=== PATIENT | female | born 1945 | race Caucasian/White ===

== ENCOUNTER → 2020-01-18 14:19 | Outpatient (CLI) | payer OTHER, SELFPAY ==
[2020-01-19 13:16] LABS: COVID19 Sendout Not Detected (Not Detect)
== END ==
PROVIDERS: Visit Provider Nurse Practitioner
DX: Z01.812 Encounter for preprocedural laboratory examination (principal)
CPT/HCPCS: 87635

== ENCOUNTER 2020-01-21 07:50 | Inpatient (IN) | payer OTHER, SELFPAY ==
[2020-01-14 12:47] VITALS: BMI 29.7
[2020-01-21] VITALS (22 sets, daily range): BP systolic 112–161; BP diastolic 50–93; PULSE 80–91; RESP 10–18; TEMP 36.2–36.9; O2SAT 92–99; BMI 34.0
--- NOTE | 2020-01-21 | DI.RAD.S_ITS ---
PROCEDURE: XR CERVICAL SPINE 2V OR 3V INDICATIONS: C3-4, C4-5, C5-6 ACDF TECHNIQUE: Fluoroscopic images were obtained during an operative procedure and submitted for interpretation following the completion of the procedure. COMPARISON: [facility], MR, MR CERVICAL SPINE WITHOUT CONTRAST, 10/23/2019, 11:02. [facility], CR, XR CERVICAL SPINE 6+ VIEWS, 09/22/2019, 14:56. FINDINGS: These fluoroscopic images were performed for intraoperative localization. On these images, anterior fixation hardware is seen C3 through C6. Disc spacers have been placed at C3-C4, C4-C5, and C5-C6. Please correlate with intraoperative findings. IMPRESSION: Normal intraoperative examination. Dictated by: Abdi Valenzuela M.D. on 01/21/2020 at 11:03 Approved by: Abdi Valenzuela M.D. on 01/21/2020 at 11:04
[2020-01-21] MEDS: LACTATED RINGERS 1,000 ML 42 ML IV ×2 (08:25→10:33)
[2020-01-21] MEDS: ACETAMINOPHEN 325 MG TABLET 975 MG PO (08:31)
--- NOTE | 2020-01-21 08:39 | PM.PREOP ---
Pre-operative Note COVID-19 COVID-19 status: Negative Result date/Date tested (Pos, Neg/Pending): 01/19/20 Interval Note History & Physical reviewed/Exam performed by Physician: Yes Changes to H&P: No
[2020-01-21] MEDS: CLINDAMYCIN 900 MG/50 ML PIGGYBACK 50 MG IV ×2 (08:49→16:23)
--- NOTE | 2020-01-21 09:29 | SUR.OPER ---
Supine, head on gel donut. Arms padded with gel pads, tucked at sides, towel roll under shoulders. Safety belt at thigh. Legs uncrossed. pillow under knees, gel under heels
--- NOTE | 2020-01-21 10:02 | SUR.OPER ---
patient glasses sent to pacu with patient
--- NOTE | 2020-01-21 11:59 | P.OP_ITS ---
Operative Date/Time/Diagnoses Date of procedure: 01/21/20 Time of procedure: 08:59 Pre-op diagnosis: 1. C3-4, C4-5, C5-6 spondylolisthesis 2. C3-4, C4-5, C5-6 spinal stenosis Post-op diagnosis: same Procedure & Clinicians Procedure: 1. C3-4, C4-5, C5-6 anterior cervical diskectomy and fusion 2. C3-4, C4-5, C5-6 anterior interbody cage placement 3. C3-4, C4-5, C5-6 anterior instrumentation with plate and screw placement in C4-C5-C6 and C7 vertebrae 4. Utilization of microsurgical technique and operating microscope Same procedure as scheduled: Yes Indications: Patient has been having chronic neck pain and worsening cervical radiculopathy. Patient failed multiple conservative management with worsening pain weakness and numbness in her upper extremity. Patient has been having difficulty performing activity of daily living. After discussing risks benefits of treatment options, patient elected proceed with surgery. Surgeon: Kait Parham User Interface Artist: Lisa Puentes Click Yes if Unassisted: No Anesthesia Type: General Operative Notes Closure Type: primary Specimen(s): none sent Prosthetic devices, grafts, tissues, transplants, or devices: Globus extend plate, PEEK cages Applied: catheter Estimated Blood Loss (mL): 50 Blood products transfused: none Procedure in detail: Patient was seen in the preoperative area. Risks and benefits of the surgery was discussed with the patient. Operative consent was obtained and placed in the chart. Patient was then taken to the operative room. Prophylactic antibiotic was given less than 0.5 hr prior to skin incision. General anesthesia was administered. Patient was placed into a supine position on her radiolucent table. Bilateral shoulders were taped down to allow proper C- arm imaging. Anterior cervical area was prepped and draped in a sterile f ashion. Time-out was performed at this time. Using lateral C-arm imaging, the level between C3 and C6 was identified and marked on patient's neck. A oblique incision from midline towards medial border of sternocleidomastoid muscle was made. The platysma muscle was incised in line with skin incision. Metzenbaum scissor was used to develop the plane between the medial border of sternocleidomastoid d and the strap muscles medially. The carotid sheath and its contents were identified and protected behind the hand- held retractor during the entire case. The plane between the carotid sheath and strap muscles was developed with Metzenbaum scissors. Dissection was made down to the level of the anterior cervical fascia. Longus colli muscle was incised on the anterior aspect of vertebral bodies bilaterally from C3-C6. Spinal needle was placed into the C3-4 disc space and confirmed with lateral C-arm imaging. Using microsurgical technique and operative microscope, anterior cervical diskectomy was performed at C3-4 C4-5 and C5-6 level. This was done by removing the disc material, removing the anterior and posterior osteophytes posterior longitudinal ligaments along with performing bilateral foraminotomies at all 3 levels. Patient was found to have severe central and foraminal stenosis at all 3 levels. Patient's stenosis was fully decompressed after decompression was completed. After the diskectomy was completed, 3 anterior interbody cages were obtained. The cages were packed with DBM bone grafting material. One cage each along with the bone grafting material was then packed into the interbody spaces from C3-C6 with one cage into each interbody level. After the cages were placed, the anterior cervical plate was stabilized to the C3-C6 vertebrae using 2 screws at each each level. Total 8 screws were placed. After confirming placement of the hardware with AP and lateral C-arm imaging, the screws were locked into the plate using the locking mechanism and torque limiting screwdriver. After the hardware was placed and confirmed with AP and lateral C-arm imaging, the wound was irrigated with sterile normal saline. The platysma muscle and the subcutaneous tissue was closed with 2-0 Vicryl. The skin was closed with 4-0 Monocryl and Steri-Strips. Patient tolerated the procedure well. Patient was transferred recovery room in stable condition. There were no complications. Complications: none Post-operative Condition: stable Disposition: PACU Plan for aftercare: Admit to inpatient hospital
[2020-01-21] MEDS: ONDANSETRON 4 MG/2 ML INJ IV (12:11)
[2020-01-21] MEDS: ALBUTEROL 2.5 MG/3 ML NEB (ADULT) INH (12:11)
[2020-01-21] MEDS: hydrOXYzine 50 MG/ML INJ 25 MG IM (12:11)
[2020-01-21] MEDS: fentaNYL 100 MCG/2 ML INJ IV (12:24)
[2020-01-21] MEDS: HYDROMORPHONE 2 MG INJ IV ×2 (12:24→12:53)
--- NOTE | 2020-01-21 13:51 | SUR.PHASEI ---
Patient resting quietly with eyes closed. VSS. No respiratory distress noted. RR even and unlabored. Awaiting hand-off to receiving inpatient nurse.
--- NOTE | 2020-01-21 14:38 | PC.NURSE ---
Pt to room 222 via bed from PACU. Pt sleepy but awake when her name is called. Daughter is at the bedside. Pt denies pain at this time, Pt back asleep but discussed with daughter that bed alarm was on, call light use, no getting up without assistance, scd's are on and running, IVF running as ordered. Pt denies pain at this time. Pt is having occasional ice chips when awake but we are holding off any further po until Pt is awake.
[2020-01-21] MEDS: SODIUM CHLORIDE 0.9% 1,000 ML 100 ML IV (14:50)
--- NOTE | 2020-01-21 15:48 | PT-IP ANOTE ---
PT order received. Attempted to see pt at 1445. Pt was too drowsy to meaningfully participate in PT but pt's daughter was able to provide social hx. Will attempt again tomorrow morning.
[2020-01-21] MEDS: CITALOPRAM 10 MG TABLET 40 MG PO (16:23)
[2020-01-21] MEDS: PANTOPRAZOLE 40 MG TABLET PO (16:23)
[2020-01-21] MEDS: OXYCODONE IR 5 MG TABLET PO ×2 (16:56→19:59)
[2020-01-21] MEDS: hydrOXYzine pamoate 25 MG CAPSULE PO (18:52)
[2020-01-21] MEDS: POTASSIUM CHLORIDE 20 MEQ TAB PO (20:03)
[2020-01-21] MEDS: ACETAMINOPHEN 325 MG TABLET 650 MG PO (20:03)
[2020-01-21] MEDS: SIMVASTATIN 20 MG TABLET PO (20:03)
[2020-01-21] MEDS: DOCUSATE 100 MG CAPSULE PO (20:03)
[2020-01-21] MEDS: SENNOSIDES 8.6 MG TABLET 17.2 MG PO (20:04)
[2020-01-21] MEDS: HYDROMORPHONE 0.5 MG INJ 0.2 MG IV (21:12)
[2020-01-22] VITALS (7 sets, daily range): BP systolic 137–149; BP diastolic 73–92; PULSE 76–90; RESP 16–18; TEMP 36.2–37; O2SAT 93–100
[2020-01-22] MEDS: CLINDAMYCIN 900 MG/50 ML PIGGYBACK 50 MG IV (01:22)
[2020-01-22] MEDS: SODIUM CHLORIDE 0.9% 1,000 ML 100 ML IV (01:22)
[2020-01-22] MEDS: ONDANSETRON 4 MG/2 ML INJ IV ×2 (01:24→06:05)
[2020-01-22] MEDS: OXYCODONE IR 5 MG TABLET PO ×5 (01:24→18:38)
[2020-01-22] MEDS: hydrOXYzine pamoate 25 MG CAPSULE PO ×4 (03:56→18:38)
--- NOTE | 2020-01-22 07:26 | P.PN_ITS ---
Subjective Subjective Date Patient Seen: 01/22/20 Time Patient Seen: 07:26 Interval history: POD #1 s/p C3-[address] Parham. No difficulty swallowing this morning. She does complain of a constant headache since surgery. It does not change with position. She states she did not sleep at all last night due to the headache and vomiting. She has a quezada in place. Exam Vital Signs (past 8 hours): - 01/22/20 00:00 01/22/20 04:13 Temperature 97.2 F L 97.2 F L Pulse Rate 80 77 Respiratory Rate 16 18 Blood Pressure 146/92 H 149/88 H Pulse Oximetry 98 99 Oxygen Delivery Method Room Air Oxygen Flow Rate 2 Narrative Exam Narrative: Patient sitting up in bed in NAD. She is alert and oriented X3. SCDs on and functioning. Dining Service Inspector strength strong and equal. SILT throughout BUEs. D ressing on neck is CDI. Soft collar in place. Objective Labs Result Diagrams: 01/22/20 08:32 Assessment & Plan Post-op Postoperative Procedures: Procedures Operation Date: 01/21/20 08:45 Actual Procedures Side Surgeon p C3-4,C4-5,C5-6 ACDF w/ anterior instrumentation Kait Parham MD Patient will work with PT today. No excessive bending, lifting, or twisting. Will do 500 ml bolus due to vomiting all night. Will do decadron 10 mg now, and 4 mg every 6 hours for 24 hour burst. Continue current pain control. Keep quezada in place until she is mobilizing more. Anticipate discharge in next 2-3 days. Quality VTE Deep Vein Thrombosis/Pulmonary Embolism Present on Admission: No
[2020-01-22] MEDS: DOCUSATE 100 MG CAPSULE PO ×2 (08:08→21:24)
[2020-01-22] MEDS: LOSARTAN 25 MG TABLET 50 MG PO (08:09)
[2020-01-22] MEDS: CHLORTHALIDONE 25 MG TABLET PO (08:09)
[2020-01-22] MEDS: DEXAMETHASONE 10 MG/ML VIAL IV (08:11)
[2020-01-22] MEDS: lamoTRIgine 100 MG TABLET PO (08:11)
[2020-01-22] MEDS: POTASSIUM CHLORIDE 20 MEQ TAB PO ×2 (08:12→21:24)
[2020-01-22] MEDS: SODIUM CHLORIDE 0.9% 500 ML 1000 ML IV (08:30)
[2020-01-22] MEDS: ACETAMINOPHEN 325 MG TABLET 650 MG PO ×2 (08:35→21:23)
[2020-01-22 08:40] LABS: Hematocrit 30.8 % (36-46); Hemoglobin 9.9 g/dL (12.0-16.0); Mean Corpuscular Hemoglobin 26.7 PG (26-34); Mean Corpuscular Volume 83.3 fL (80-100); Platelet Count 247 X10^3/uL (150-400); Red Blood Cell Count 3.69 X10^6/uL (4.0-5.2)
--- NOTE | 2020-01-22 09:37 | PT.IIE ---
Current Diagnoses Other spondylosis with myelopathy, cervical region (01/21/20) Spinal stenosis, cervical region (01/21/20) Surgery Performed Operation Date: 01/21/20 08:45 Actual Procedures p C3-4,C4-5,C5-6 ACDF w/ anterior instrumentation - Kait Parham MD Surgical History (Last Updated 01/14/20 @ 14:15 by Ayesha Lozano, RN) H/O wrist surgery (Acute) History of bunionectomy of left great toe (Acute) History of hysterectomy (Acute) History of total hip arthroplasty (Acute) Hx of bilateral cataract extraction (Acute 12/2019) Hx of cholecystectomy (Acute) Hx of repair of right rotator cuff (Acute) Medical History (Last Updated 01/14/20 @ 14:18 by Ayesha Lozano RN) Anemia (Acute) Asthma (Acute) Bipolar II disorder major depressive with melancholic features (Acute) Cervical spinal stenosis (Acute) Depression (Acute) Easy bruisability (Acute) GERD (gastroesophageal reflux disease) (Acute) HLD (hyperlipidemia) (Acute) HTN (hypertension) (Acute) Osteoarthritis (Acute) Rheumatoid arthritis (Acute) Spondylosis of cervical spine with myelopathy (Acute) Stroke (Acute) Physical Therapy Inpatient Evaluation M1 PT/OT-IP Prior Functional Status Start: 01/21/20 14:35 Freq: NEEDED Status: Active Protocol: Document 01/22/20 09:37 DLM (Rec: 01/22/20 10:39 DLM [email or web address]) Medical Review Prior Functional Status Medical History Reviewed Yes Diet/Fluid Consistency Regular Communication WNL. No deficits noted. Able to make needs known. Mobility and Gait IND without any use of AD at baseline but with limited community amb. Pt also reports she loses balance often. Unable to stand for more than ~10 min. Unable to finish grocery shopping without taking a break. Activities of Daily Living and IADL's IND with all ADLs and IADLs at baseline. Prior Functional Level (Other details) glasses Social History Household Members children Living Arrangements House Number of Floors (Floors) One Floor Number of Stairs To Enter/Railing? 3 RINA with L railing ascending . Home Environment High Toilet,Tub/Shower Home Equipment Front Wheel Walker,Straight Cane,Crutches,Manual Wheelchair,Shower Seat with Backrest,Hand Held Shower,Long Handled Sponge,Long Handled Shoe Horn,Geography Professor,Sock Aid, Grab Bars Near Toilet,Grab Bars In Shower Employment Status Retired Additional Social History Comment Pt lives with her daughter, her son-in-law, and 2 grown-up grandchildren. Pt's daughter, Samantha, will be available to assist at home. M2 PT-IP Current Condition Start: 01/21/20 14:35 Freq: NEEDED Status: Active Protocol: Document 01/22/20 09:37 DLM (Rec: 01/22/20 10:39 DLM [email or web address]) Physical Therapy Current Condition Current Condition Evaluation Date 01/22/20 Treatment Diagnosis ACDF C3-6, impaired mobility Onset Date 01/21/20 Precautions Cervical Spine Precautions Soft Collar for Comfort,Log Roll Brace soft cerivical collar in place Other Precautions limit lifting post-op with UE' s M3 PT-IP Subjective Start: 01/21/20 14:35 Freq: NEEDED Status: Active Protocol: Document 01/22/20 09:37 DLM (Rec: 01/22/20 10:39 DLM [email or web address]) Subjective Physical Therapy Visit Type Type Initial Evaluation Visit Start Time 09:00 Visit Stop Time 09:37 Total Visit Minutes 37 Number of KILN OPERATOR Visits 0 Physical Therapy Visit Comments Patient Comments She vomitted last night. She has been having difficulty with a headache since sx. She did not sleep well last night due to her pain. Patient Goals go home tommorrow with help from her daughter Therapy Pain Assessment Pain When Pain Assessed After Treatment Pain Present Pain Present Pain Reported Location Neck Intensity 6 Scale Used Numeric (0 - 10) Description Aching,Acute Pain Behaviors Guarding Pain Management Techniques Re-positioning,Timing of Activity with Medications M4 PT-IP Mobility and Gait Start: 01/21/20 14:35 Freq: NEEDED Status: Active Protocol: Document 01/22/20 09:37 DLM (Rec: 01/22/20 10:39 DLM [email or web address]) PT-Bed Mobility Assessment Rolling Type of Rolling Log Rolling,Roll to Left Level of Assist Standby Assistance Supine to Sit Supine to Sit Standby Assistance Scooting Scooting to Edge of Bed Standby Assistance PT-Transfer Assessment Sit to and From Stand Sit to and from Stand Standby Assistance,Contact Guard Assistance,Use of Upper Extremities Equipment Transfer Assistive Device Gait Belt,Front Wheeled Walker Orthotic/Prosthetic Devices or Brace: Yes Transfers Transfer Destination Chair Transfer Technique Stand Step Pivot Transfer Ability Level of Assist Standby Assistance,Contact Guard Assistance Comments Mobility Comments Light-headed with initial mobility but improved with sitting edge of bed, doing multiple sit-stands, and static standing with fWW before progressing activity. Pt left sitting up in recliner with call light close, education to have staff assist her and her daughter visiting . Gait Assessment Gait Gait Assistance Required: Contact Guard Assist Distance (Feet) 12 Assistive Devices Assistive Device Gait Belt,Front Wheeled Walker Orthotic/Prosthetic Devices or Brace: Yes Gait Deviations General Gait Pattern Decreased Stride Length,Flexed Trunk Factors Limiting Gait Function Factors Limiting Gait Function Decreased Activity Tolerance, Pain Comments Gait Comments slow pace with gait, short steps, encouraged her to look up PT-Balance Assessment Sitting Balance and Reactions Static Sitting Balance Ability Good Dynamic Sitting Balance Ability Good Standing Balance and Reactions Static Standing Balance Ability Good Dynamic Standing Balance Ability Fair Device Used with FWW Comments Other Balance Tests/Deviations/Treatment pt reports feeling unsteady : and prefers to use the fWW today M5 PT-IP Objective Assessments Start: 01/21/20 14:35 Freq: NEEDED Status: Active Protocol: Document 01/22/20 09:37 DLM (Rec: 01/22/20 10:39 DLM [email or web address]) Orientation Orientation/Cognition Level of Alertness Alert Orientation Name,Age,Birthday,Month,Date, Year,Day of Week,Place, Situation Language Function Ability No Deficits Noted Safety Awareness Understands Safety Issues Memory Description No Deficits Noted Gross Range of Motion Upper Extremity ROM Assessment Within Functional Limits Impairments aching in UE's pre-op and post -op Lower Extremity ROM Assessment Within Functional Limits Strength Upper Extremity Strength Shoulder functional limitations due to cervical pain Lower Extremity Strength Assessment Within Functional Limits Coordination Assessment Gross Coordination Gross Coordination WNL Sensation Assessment Sensation Gross Sensation WNL Comments Sensation Comments no post-op numbness/tingling reported today Muscle Tone Muscle Tone WNL Yes Other Assessments Other Other Assessments flexed posture and pt is unable to achieve a neutral head position, quezada catheter in place on eval, pt moves head often in conversation M6 PT-IP Treatment Start: 01/21/20 14:35 Freq: NEEDED Status: Active Protocol: Document 01/22/20 09:37 DLM (Rec: 01/22/20 10:39 DLM [email or web address]) Physical Therapy Treatment Education Education Provided Precautions,Safety Other Treatments Other Treatment Performed education provided on wearing soft cervical collar post-op M7 PT-IP Assessment and Plan Start: 01/21/20 14:35 Freq: NEEDED Status: Active Protocol: Document 01/22/20 09:37 DLM (Rec: 01/22/20 10:39 DLM [email or web address]) PT Summary Assessment and Plan Potential Rehabilitation Potential Good Status of Condition at Evaluation Evolving Summary Impairments Pain,ROM,Strength,Balance,Bed Mobility,Transfers,Gait, Activity Tolerance Assessment Summary Bambi is alert and motivated to work with physical therapy this morning. She has been having difficulty with post-op pain and vomiting since sx. She experienced mild light- headedness with initial mobility but this improved with a slow progression of her mobility. She was able to ambulate in her room with fWW and slow pace. Pt up to recliner and positioned for comfort. Assisted her to adjust her soft cervical collar for comfort. Anticipate she will be able to discharge home with her Daughter to assist her if she continues to progress well. Will plan to continue to slowly progress her activity and reinforce post-op precautions as tolerated. Will work towards goal of discharge home tomorrow. Goals Bed Mobility Goal Independent Transfer Goal Independent,Front Wheeled Walker Gait Goal Independent,Front Wheel Walker Gait Distance 150 feet Other Goals up and down 3 steps with CG assist and left rail. Days to Meet Goals 2 Frequency of Treatment Frequency Of Treatment Twice a Day Treatment Plan Physical Therapy Treatment Plan Bed Mobility Training,Transfer Training,Gait Training, Therapeutic Exercise,Balance Retraining,Post Op Education, Discharge Planning,Hot or Cold Pack,Neuromuscular Re-ed Recommendations To Nursing Amount of Assist Needed 1 Person Assist Discharge Recommendations PT Discharge Recommendations Home with Assistance Equipment Needed for Home Before she owns a FWW Discharge Transportation Needs at Discharge Private Vehicle
--- NOTE | 2020-01-22 14:06 | PT.IPTN ---
Current Diagnoses Other spondylosis with myelopathy, cervical region (01/21/20) Spinal stenosis, cervical region (01/21/20) Surgery Performed Operation Date: 01/21/20 08:45 Actual Procedures p C3-4,C4-5,C5-6 ACDF w/ anterior instrumentation - Kait Parham MD Physical Therapy Treatment Note M2 PT-IP Current Condition Start: 01/21/20 14:35 Freq: NEEDED Status: Active Protocol: Document 01/22/20 09:37 DLM (Rec: 01/22/20 10:39 DLM [email or web address]) Physical Therapy Current Condition Current Condition Evaluation Date 01/22/20 Treatment Diagnosis ACDF C3-6, impaired mobility Onset Date 01/21/20 Precautions Cervical Spine Precautions Soft Collar for Comfort,Log Roll Brace soft cerivical collar in place Other Precautions limit lifting post-op with UE' s M3 PT-IP Subjective Start: 01/21/20 14:35 Freq: NEEDED Status: Active Protocol: Document 01/22/20 13:52 DLM (Rec: 01/22/20 14:05 DLM [email or web address]) Subjective Physical Therapy Visit Type Type Treatment Note Visit Start Time 12:20 Visit Stop Time 13:52 Total Visit Minutes 32 Number of AUTOMOBILE ACCESSORIES INSTALLER Visits 0 Physical Therapy Visit Comments Patient Comments She feels better Patient Goals go home tomorrow Therapy Pain Assessment Pain When Pain Assessed After Treatment Pain Present Pain Present Pain Reported Location Neck Intensity 3 Scale Used Numeric (0 - 10) Description Aching Pain Behaviors Guarding Pain Management Techniques Re-positioning M4 PT-IP Mobility and Gait Start: 01/21/20 14:35 Freq: NEEDED Status: Active Protocol: Document 01/22/20 13:52 DLM (Rec: 01/22/20 14:05 DLM [email or web address]) PT-Bed Mobility Assessment Rolling Type of Rolling Roll to Right Level of Assist Standby Assistance Supine to Sit Supine to Sit Standby Assistance Sit to Supine Sit to Supine Standby Assistance Scooting Scooting to Edge of Bed Independent PT-Transfer Assessment Sit to and From Stand Sit to and from Stand Standby Assistance,Use of Upper Extremities Equipment Transfer Assistive Device Gait Belt,Front Wheeled Walker Transfers Transfer Destination Bed Transfer Technique Stand Step Pivot Transfer Ability Level of Assist Standby Assistance,Use of Upper Extremities Gait Assessment Gait Gait Assistance Required: Standby Assistance Distance (Feet) 200 Assistive Devices Assistive Device Gait Belt,Front Wheeled Walker Orthotic/Prosthetic Devices or Brace: Yes Gait Deviations General Gait Pattern Flexed Trunk Factors Limiting Gait Function Factors Limiting Gait Function Decreased Activity Tolerance, Decreased Strength,Limited Range of Motion,Pain PT-Balance Assessment Sitting Balance and Reactions Static Sitting Balance Ability Normal Dynamic Sitting Balance Ability Normal Standing Balance and Reactions Static Standing Balance Ability Good Dynamic Standing Balance Ability Good Device Used FWW M5 PT-IP Objective Assessments Start: 01/21/20 14:35 Freq: NEEDED Status: Active Protocol: Document 01/22/20 09:37 DLM (Rec: 01/22/20 10:39 DLM [email or web address]) Orientation Orientation/Cognition Level of Alertness Alert Orientation Name,Age,Birthday,Month,Date, Year,Day of Week,Place, Situation Language Function Ability No Deficits Noted Safety Awareness Understands Safety Issues Memory Description No Deficits Noted Gross Range of Motion Upper Extremity ROM Assessment Within Functional Limits Impairments aching in UE's pre-op and post -op Lower Extremity ROM Assessment Within Functional Limits Strength Upper Extremity Strength Shoulder functional limitations due to cervical pain Lower Extremity Strength Assessment Within Functional Limits Coordination Assessment Gross Coordination Gross Coordination WNL Sensation Assessment Sensation Gross Sensation WNL Comments Sensation Comments no post-op numbness/tingling reported today Muscle Tone Muscle Tone WNL Yes Other Assessments Other Other Assessments flexed posture and pt is unable to achieve a neutral head position, quezada catheter in place on eval, pt moves head often in conversation M6 PT-IP Treatment Start: 01/21/20 14:35 Freq: NEEDED Status: Active Protocol: Document 01/22/20 13:52 DLM (Rec: 01/22/20 14:05 DL [email or web address]) Physical Therapy Treatment Exercises Exercises Ankle Pumps Education Education Provided Precautions,Safety Other Treatments Other Treatment Performed education provided on wearing soft cervical collar post-op M7 PT-IP Assessment and Plan Start: 01/21/20 14:35 Freq: NEEDED Status: Active Protocol: Document 01/22/20 13:52 DLM (Rec: 01/22/20 14:05 DL [email or web address]) PT Summary Assessment and Plan Summary Impairments Pain,ROM,Strength,Balance,Bed Mobility,Transfers,Gait, Activity Tolerance Progress Towards Goals Progressing Toward Goals Assessment Summary She reports she is feeling better this afternoon. No light-headedness while up moving this visit. She tolerated gait in the henriquez with fWW and SBA. She needs reminders to stand as erect as possible and relax UT's as possible. She is progressing well. Continue to plan for discharge home tomorrow with her Daughter to assist her. Goals Bed Mobility Goal Independent Transfer Goal Independent,Front Wheeled Walker Gait Goal Independent,Front Wheel Walker Gait Distance 150 feet Other Goals up and down 3 steps with CG assist and left rail. Days to Meet Goals 2 Frequency of Treatment Frequency Of Treatment Twice a Day Treatment Plan Physical Therapy Treatment Plan Bed Mobility Training,Transfer Training,Gait Training, Therapeutic Exercise,Balance Retraining,Post Op Education, Discharge Planning,Hot or Cold Pack,Neuromuscular Re-ed Recommendations To Nursing Amount of Assist Needed 1 Person Assist Discharge Recommendations PT Discharge Recommendations Home with Assistance Equipment Needed for Home Before she owns a FWW Discharge Transportation Needs at Discharge Private Vehicle
--- NOTE | 2020-01-22 14:39 | OT.IP.EVAL ---
Current Diagnoses Other spondylosis with myelopathy, cervical region (01/21/20) Spinal stenosis, cervical region (01/21/20) Surgery Performed Operation Date: 01/21/20 08:45 Actual Procedures p C3-4,C4-5,C5-6 ACDF w/ anterior instrumentation - Kait Parham MD Past Medical History (Last Updated 01/14/20 @ 14:18 by Ayesha Lozano, RN) Anemia (Acute) Asthma (Acute) Bipolar II disorder major depressive with melancholic features (Acute) Cervical spinal stenosis (Acute) Depression (Acute) Easy bruisability (Acute) GERD (gastroesophageal reflux disease) (Acute) HLD (hyperlipidemia) (Acute) HTN (hypertension) (Acute) Osteoarthritis (Acute) Rheumatoid arthritis (Acute) Spondylosis of cervical spine with myelopathy (Acute) Stroke (Acute) Surgical History (Last Updated 01/14/20 @ 14:15 by Ayesha Lozano RN) H/O wrist surgery (Acute) History of bunionectomy of left great toe (Acute) History of hysterectomy (Acute) History of total hip arthroplasty (Acute) Hx of bilateral cataract extraction (Acute 12/2019) Hx of cholecystectomy (Acute) Hx of repair of right rotator cuff (Acute) Occupational Therapy Inpatient Evaluation/Re-Eval M1 PT/OT-IP Prior Functional Status Start: 01/22/20 18:01 Freq: NEEDED Status: Active Protocol: Document 01/22/20 14:15 [facility] (Rec: 01/22/20 18:25 [facility] [id number]) Medical Review Prior Functional Status Medical History Reviewed Yes Diet/Fluid Consistency Regular Communication WNL. No deficits noted. Able to make needs known. Mobility and Gait IND without any use of AD at baseline but with limited community amb. Pt also reports she loses balance often. Unable to stand for more than ~10 min. Unable to finish grocery shopping without taking a break. Activities of Daily Living and IADL's IND with all ADLs and IADLs at baseline. Prior Functional Level (Other details) glasses Social History Household Members children Living Arrangements House Number of Floors (Floors) One Floor Number of Stairs To Enter/Railing? 3 RINA with L railing ascending . Home Environment High Toilet,Tub/Shower Home Equipment Front Wheel Walker,Straight Cane,Crutches,Manual Wheelchair,Shower Seat with Backrest,Hand Held Shower,Long Handled Sponge,Long Handled Shoe Horn,Hand Laminator,Sock Aid, Grab Bars Near Toilet,Grab Bars In Shower Employment Status Retired Additional Social History Comment Pt lives with her daughter, her son-in-law, and 2 grown-up grandchildren. Pt's daughter, Samantha, will be available to assist at home. M2 OT-IP Current Condition Start: 01/22/20 18:01 Freq: Status: Active Protocol: Document 01/22/20 14:15 [facility] (Rec: 01/22/20 18:25 [facility] [id number]) Occupational Therapy Current Condition Current Condition Evaluation Date 01/22/20 Treatment Diagnosis spinal stenosis, s/p C3-C6 ACDF Diagnosis Onset Date 01/21/20 Post Operative Precautions Lumbar Precautions Log Roll,No Twisting,Limit Bending,Lifting Restriction of 10 lbs,Gait Belt above Incisional Area M3 OT- IP Subjective and Pain Start: 01/22/20 18:01 Freq: Status: Active Protocol: Document 01/22/20 14:15 [facility] (Rec: 01/22/20 18:25 [facility] [id number]) OT- Subjective Occupational Therapy Visit Type Type Initial Evaluation Visit Start Time 14:15 Visit Stop Time 14:39 Total Visit Minutes 24 Occupational Therapy Visit Comments Patient Comments Pt willing to get up for OT eval. Patient/Caregiver Goals To go home. M4 OT- IP ADL's Start: 01/22/20 18:01 Freq: Status: Active Protocol: Document 01/22/20 14:15 [facility] (Rec: 01/22/20 18:25 [facility] [id number]) OT [id number] Comments OT Self-Feeding Comments Not at meal time. Pt is aware of making sure to eat while upright, chew food thoroughly, and alternate between solids and liquids. OT ADL-Grooming General Evaluation Grooming Ability Standby Assistance Areas Needing Assistance Retrieving/Set-up of Grooming Items Comments OT Grooming Comments Able to do while standing at the sink with FWW. OT ADL-Oral Care General Eval Oral Care Ability Independent OT ADL-Dressing General Eval Lower Body Dressing Ability Maximum Assistance Areas Needing Assistance Socks Comments OT Dressing Comments Pt needing assist for socks . Pt has all LB dressing equipment at home to be able to assist with dressing needs , in addition, pt's daughter to be home to assist. OT ADL-Toileting General Evaluation Toileting Ability Standby Assistance Comments OT Toileting Comments Pt able to simulate wiping while on the toilet and able to follow back precautions with good safety. OT ADL-Bathing Comments OT Bathing Comments Not at this time. M5 OT- IP IADL's Start: 01/22/20 18:01 Freq: Status: Active Protocol: Document 01/22/20 14:15 [facility] (Rec: 01/22/20 18:25 [facility] [id number]) OT-Instrumental Activities of Daily Living Home Safety Awareness Awareness of Need for Assistance at Home Good Awareness Medication Management Medication Management Comments Pt a bit groogy and pt's daughter aware to assist as needed. M6 OT- IP Functional Cognition Start: 01/22/20 18:01 Freq: Status: Active Protocol: Document 01/22/20 14:15 [facility] (Rec: 01/22/20 18:25 [facility] [id number]) Cognitive Factors Limiting Selfcare Function Cognitive Ability Level of Alertness Alert Patient Orientation Name,Place,Situation Attention Span Ability Capable of Focused Attention, Capable of Sustained Attention Ability to Follow Commands Able to Follow One Step Commands with Increased Time, Able to Follow One Step Commands with Repetition Memory Description Short Term Impaired Safety Awareness Decreased Ability to Apply Precautions,Underestimates Need for Assistance Cognitive Comments Cognitive Assessment Comments Pt not remembering to do log rolling and needing reminders to turn her body and head at the same time as pt tends to want to twist at her neck. OT- Vision and Hearing OT- Hearing Assessment OT- Hearing Assessment WFL OT- Vision Assessment Visual Acuity Glasses All The Time M7 OT- IP Mobility and Balance Start: 01/22/20 18:01 Freq: Status: Active Protocol: Document 01/22/20 14:15 [facility] (Rec: 01/22/20 18:25 [facility] [id number]) OT- Bed Mobility Assessment Rolling Type of Rolling Roll to Right Supine to Sit Supine to Sit Assist Contact Guard Assistance OT-Transfer Assessment Sit to and From Stand Sit to and from Stand Contact Guard Assistance Transfers Transfer Ability Contact Guard Assistance Technique Transfer Destination Bed,Toilet Transfer Technique Stand Step Pivot Devices Transfer Assistive Devices Gait Belt,Front Wheeled Walker Comments Mobility Comments VC to push up from the bed . Cues not to twist to use the grab bar in the bathroom to come to stand. OT- Gait Assessment Comments Gait Ability Comments CGA with FWW OT- Balance Assessment Sitting Balance and Reactions Static Sitting Balance Ability Normal Dynamic Sitting Balance Ability Good Standing Balance and Reactions Static Standing Balance Ability Fair M8 OT- IP Objective Assessments Start: 01/22/20 18:01 Freq: Status: Active Protocol: Document 01/22/20 14:15 [facility] (Rec: 01/22/20 18:25 [facility] [id number]) OT Gross Range of Motion Upper Extremity Range of Motion Assessment Left Impaired OT-Muscle Tone Assessment Muscle Tone WNL Yes M9 OT- IP Assessment and Plan Start: 01/22/20 18:01 Freq: Status: Active Protocol: Document 01/22/20 14:15 [facility] (Rec: 01/22/20 18:25 [facility] [id number]) OT Summary Assessment and Plan Potential Rehabilitation Potential Good Analytic Complexity at Evaluation Low Summary OT Impairments Pain,Balance,Functional Cognition,Functional Mobility, Grooming,Dressing,Toileting, Bathing,Toilet Transfers, Shower Transfers,Activity Tolerance Progress Towards Goals Progressing Toward Goals Assessment Summary Pt low complexity and main barriers are steps and needing cus to follow her cervical precautions. Pt has a supportive family to assist her for all needs. Pt looking to go home with assist when medically stable. Goals Grooming Goal Independent Dressing Goal Independent Toileting Goal Independent Bathing Goal Independent Toilet Transfer Goal Independent Shower Transfer Goal Independent Patient/Caregiver Education Goal Demonstrate Post-Op Precautions,Caregiver Independent Assisting Patient Days to Meet Goals 5 Frequency of Treatment Frequency Of Treatment Once a Day Treatment Plan OT Treatment Plan ADL Training,Functional Cognition Training,Functional Mobility,Patient/Family Education,Discharge Planning Other Treatment Recommendations and Next caregiver training. Treatment Focus Discharge Recommendations OT Discharge Recommendations Home with Assistance Transportation Needs at Discharge Private Vehicle
[2020-01-22] MEDS: DEXAMETHASONE 4 MG/ML VIAL IV ×2 (15:44→22:33)
[2020-01-22] MEDS: PANTOPRAZOLE 40 MG TABLET PO (17:38)
[2020-01-22] MEDS: CITALOPRAM 10 MG TABLET 40 MG PO (17:39)
[2020-01-22] MEDS: SENNOSIDES 8.6 MG TABLET 17.2 MG PO (21:23)
[2020-01-22] MEDS: SIMVASTATIN 20 MG TABLET PO (21:24)
[2020-01-23] MEDS: OXYCODONE IR 5 MG TABLET PO ×3 (00:12→11:23)
[2020-01-23 01:15] VITALS: BP 141/94; PULSE 73; RESP 16; TEMP 36.2; O2SAT 93
[2020-01-23] MEDS: DEXAMETHASONE 4 MG/ML VIAL IV ×2 (04:07→09:22)
[2020-01-23 06:00] VITALS: BP 144/95; PULSE 73; RESP 16; TEMP 36.1; O2SAT 95
[2020-01-23] MEDS: ACETAMINOPHEN 325 MG TABLET 650 MG PO (06:08)
[2020-01-23 07:29] VITALS: BP 145/90; PULSE 67; RESP 16; TEMP 36.2; O2SAT 94
--- NOTE | 2020-01-23 08:30 | CM.DPNOTE ---
Discharge Planning/Care Management DCPlanning note: late entry. Case received yesterday and discussed in Team Rounds. PT/OT were ordered and pt was to be seen for the first time yesterday. A check in now shows she did well and was cleared for home setting by therapy and orthopedic team. Surgeon: Dr. Parham Payer : [facility]. No d/c concerns were identified by the Care Team Members. Pre-Anesthesia Assessment Start: 01/14/20 12:46 Freq: Status: Active Protocol: Document 01/14/20 12:47 [facility] (Rec: 01/14/20 13:02 [facility] [id number]) Pre-Anesthesia Assessment Preferred Name Leticia Patient Information Reviewed Via Phone Assessment Assessment Completed With Patient Diagnostic Results CBC Comment Outside labs/ EKG scanned- COIVD screen @ 01/18/20 Primary Care Provider Lenard Pennington Seen Specialist in Last 12 Months Yes Specialist Seen Orthopedist Primary Language Urdu Information Support Project Manager Required No Height 170.18 cm Weight 86.183 kg Body Mass Index (BMI) 29.7 Hearing Ability Normal Visual Assist Glasses Dentition Type Teeth, Natural Present,Teeth, Missing Barriers to Learning None Hx Anesthesia Reactions No Hx Family Anesthesia Reaction No Hx Malignant Hyperthermia No Hx Blood Transfusions Yes: s/p vaginal delivery >50 years ago Hx Blood Transfusion Reaction No Anesthesia Review Requested No alcohol intake current alcohol intake frequency holidays/special occasions only Alcohol Intake Frequency Other: Occasional Smoking Status Former smoker Tobacco type cigarettes how long ago did patient quit smoking Quit 35+ years ago Substance Use Type does not use Pain Present Pain Reported Musculoskeletal Symptoms Abnormal Gait,Difficulty Walking,Limited Range of Motion,Neck Pain History of Falling (Recent or History of Yes ) Patient is completely paralyzed or No completely immobile Prosthesis or Orthotic Device Cane Mental Status Oriented to own ability Is patient on oxygen? No Does patient have LAINEZ/SOB Yes: Asthma, chronic cough Hx Sleep Apnea No Currently Taking a Beta Silke No Can You Climb a Flight of Stairs Without No SOB Hx Chest Pain No Hx SOB Yes: Asthma Hx Syncope or Dizziness No Anti-Coagulant Therapy No Has a Bi Manager No Cardiac Testing No Hx Pacemaker/ICD No Pacemaker Rep Required? No Cardiac Clearance Received Not Applicable Diet Type At Home Regular dysphagia Yes: Occasionally with solids Gastrointestinal Symptoms Constipation,Diarrhea,Reflux Bladder Pattern Incontinent Urinary Catheter Present No Hx Urinary Self Catheterization No Diabetes No Patient No Lactating No Hx Drug Resistant Organism No Presence of External or Internal Medical Yes: Wan eye lens, right hip, Devices left great toe Have you had any close contact with No someone diagnosed with COVID-19? Marital Status / Lives With children Prior Living Arrangements House Number of Floors (Floors) One Floor Support System Child/Children Does the Patient Have Assistance After Yes Surgery Patient Discharge Plan Description Return Home Comment Pt advised overnight length of stay per surgeon Feels Safe in Current Environment Yes Been Physically Hurt or Threatened By a No Person in Current Environment Do you have thoughts of harming yourself None or others? Are you currently considering suicide? No Do you have a plan to hurt yourself or No Plan others? Do You Have Any Spiritual Beliefs That No May Affect Your HC Choices? Do You Have Any Cultural Practices That No May Affect Your HC Choices? Comment Sikhism Who Can We Speak to About Patient's Care Family, friends Identifying Code for Release of Patient 1966 Information Health Care Proxy/Next of Kin Samantha (daughter) Health Care Proxy Emergency Contact Name Samantha (daughter) Emergency Contact Advance Directives? No Power of Commissioned Fire Officer No PAC Instructions Durable medical equipment, Medications to take/avoid, Nasal antibiotic,No ETOH/ petroleum product on skin DOS, NPO,Pre-surgical wash,Sensory aids,Sturdy shoes/comfortable clothes,Do not bring valuables and remove jewelry
--- NOTE | 2020-01-23 08:57 | PM.DS.1 ---
History of Present Illness History of Present Illness Date Patient Seen: 01/23/20 Time Patient Seen: 08:57 Chief complaint: Cervical Fusion Anterior Narrative: Patient has been having chronic neck pain and worsening cervical radiculopathy. Patient failed multiple conservative management with worsening pain weakness and numbness in her upper extremity. Patient has been having difficulty performing activity of daily living. After discussing risks benefits of treatment options, patient elected proceed with surgery. Discharge Providers Provider Date of admission: 01/21/20 07:50 Discharge Date: 01/23/20 Primary care physician: Lenard Pennington DO Consults: 01/21/20 14:13 Consult to Occupational Therapy Evaluate & Treat Comment: Physician Instructions: Evaluate and treat Consult to Physical Therapy Evaluate & Treat Comment: Physician Instructions: Evaluate and Treat Discharge provider: Cele Saab PA-C Summary Hospital Course Discharge Diagnosis: s/p C3-6 ACDF History of stroke Hypertension Hyperlipidemia GERD Asthma Anemia Osteoarthritis Rheumatoid arthritis Depression Carpal tunnel syndrome Bipolar 2 disorder major depressive with melancholic features Hospital Course: Bambi was admitted for C3-[address] Parham. She did have significant nausea and vomiting, and headache postop day 1. She was given a bolus of fluids, steroids, and muscle relaxer and she felt significantly better as the day went on. On postop day 2 her headache was down to about a 4/10. She was mobilizing with physical therapy throughout her stay. On postop day 1 in the afternoon she had her [place] removed and she has been able to void since. No complaints of nausea postop day 2. She is eating and voiding without difficulty or assistance. She has been focused on soft foods as her throat is a little sore. Exam Vital Signs (past 8 hours): - 01/23/20 01:15 01/23/20 06:00 01/23/20 07:29 Temperature 97.1 F L 96.9 F L 97.2 F L Pulse Rate 73 73 67 Respiratory Rate 16 16 16 Blood Pressure 141/94 H 144/95 H 145/90 H Pulse Oximetry 93 95 94 Oxygen Delivery Method Room Air Oxygen Flow Rate 0 Narrative Exam Narrative: Patient is sitting in bedside chair no acute distress. She is alert orient x3. Calves are soft, compressible, nontender bilaterally. Waffle Machine Operator strength strong equal. She notes only slight numbness in the left hand today. Anterior neck dressing CDI. Soft collar in place. Radial pulses symmetrical. Objective Labs Result Diagrams: 01/22/20 08:32 Discharge Plan Discharge Plan Patient Disposition: Home Discharge orders & Medications Prescriptions: New acetaminophen 325 mg Tablet 650 mg PO Q6HR PRN (Reason: Pain, Mild (1-3)) Qty: 30 RF: 0 docusate sodium [DOK] 100 mg Capsule 100 mg PO BID Qty: 30 RF: 0 hydroxyzine pamoate 25 mg Capsule 25 mg PO Q6H PRN (Reason: Nausea And Vomiting) Qty: 40 RF: 0 oxycodone 5 mg Tablet 5 mg PO Q4-6H PRN (Reason: Pain, Moderate (4-6)) Qty: 50 RF: 0 Continued citalopram 40 mg Tablet 40 mg PO QPM RF: 0 chlorthalidone 25 mg Tablet 25 mg PO DAILY RF: 0 omeprazole 40 mg Capsule,Delayed Release(Dr/Ec) 40 mg PO QPM RF: 0 aspirin 81 mg Tablet,Delayed Release (Dr/Ec) 81 mg PO DAILY RF: 0 simvastatin 20 mg Tablet 20 mg PO BEDTIME RF: 0 losartan 25 mg Tablet 50 mg PO DAILY RF: 0 albuterol sulfate 90 mcg/actuation Hfa Aerosol Inhaler 2 puff INHALATION Q4-6H PRN (Reason: Shortness Of Breath) RF: 0 lamotrigine 100 mg Tablet 100 mg PO QAM RF: 0 potassium chloride 20 mEq Tablet Extended Release 20 meq PO BID RF: 0 Estroven Nighttime (leliot-meltn) 112-2 mg Tablet 1 tab PO BEDTIME RF: 0 Follow up/Referrals: Lenard Pennington DO [Primary Care Provider] - Kait Parham MD [Physician] - Diet/Activity/Treatments Activity: No excessive bending, lifting, or twisting. Soft collar for comfort. Skin/Wound/Dressing Care Report to your healthcare provider any signs of infection, such as:: chills, fever and increased pain Dressing: leave in place until appointment Discharge Data Primary Care Provider: Lenard Pennignton VTE Deep Vein Thrombosis/Pulmonary Embolism Present on Admission: No
[2020-01-23] MEDS: DOCUSATE 100 MG CAPSULE PO (09:19)
[2020-01-23] MEDS: CHLORTHALIDONE 25 MG TABLET PO (09:19)
[2020-01-23] MEDS: POTASSIUM CHLORIDE 20 MEQ TAB PO (09:19)
[2020-01-23] MEDS: lamoTRIgine 100 MG TABLET PO (09:19)
[2020-01-23 09:22] VITALS: BP 145/90
[2020-01-23] MEDS: LOSARTAN 25 MG TABLET 50 MG PO (09:22)
--- NOTE | 2020-01-23 10:01 | PT.IPTN ---
Current Diagnoses Other spondylosis with myelopathy, cervical region (01/21/20) Spinal stenosis, cervical region (01/21/20) Surgery Performed Operation Date: 01/21/20 08:45 Actual Procedures p C3-4,C4-5,C5-6 ACDF w/ anterior instrumentation - Kait Parham MD Physical Therapy Treatment Note M2 PT-IP Current Condition Start: 01/21/20 14:35 Freq: NEEDED Status: Discharge Protocol: Document 01/22/20 09:37 [facility] (Rec: 01/22/20 10:39 [facility] [id number]) Physical Therapy Current Condition Current Condition Evaluation Date 01/22/20 Treatment Diagnosis ACDF C3-6, impaired mobility Onset Date 01/21/20 Precautions Cervical Spine Precautions Soft Collar for Comfort,Log Roll Brace soft cerivical collar in place Other Precautions limit lifting post-op with UE' s M3 PT-IP Subjective Start: 01/21/20 14:35 Freq: NEEDED Status: Discharge Protocol: Document 01/23/20 09:33 [facility] (Rec: 01/23/20 12:12 [facility] [id number]) Subjective Physical Therapy Visit Type Type Treatment Note Visit Start Time 09:33 Visit Stop Time 10:01 Total Visit Minutes 28 Number of OPTICAL TECHNICIAN Visits 1 Physical Therapy Visit Comments Patient Comments Pt agreeable to work w/ therapy. M4 PT-IP Mobility and Gait Start: 01/21/20 14:35 Freq: NEEDED Status: Discharge Protocol: Document 01/23/20 09:33 [facility] (Rec: 01/23/20 12:12 [facility] [id number]) PT-Bed Mobility Assessment Rolling Type of Rolling Roll to Right Level of Assist Standby Assistance Supine to Sit Supine to Sit Standby Assistance Sit to Supine Sit to Supine Standby Assistance Scooting Scooting to Edge of Bed Independent PT-Transfer Assessment Sit to and From Stand Sit to and from Stand Standby Assistance,Use of Upper Extremities Equipment Transfer Assistive Device Gait Belt,Front Wheeled Walker Transfers Transfer Destination Bed,Wheelchair Transfer Technique pt ambulated w/ FWW Transfer Ability Level of Assist Standby Assistance,Use of Upper Extremities Comments Mobility Comments Pt in chair upon arrival from therapy. SBA for sit<>stand w/ FWW. Pt then ambulated w/ FWW SBA to w/c in hallway for transport to stairs. Pt then ascended/descended 3 steps w/ L rail ascending and step to pattern SBA. Pt then transported mcc back to room in w/c for energy conservation and ambulated remainder of distance ~80 ft back to room. Pt performed bed mobility and logroll SBA. Pt states she feels safe to return home. Gait Assessment Gait Gait Assistance Required: Standby Assistance Distance (Feet) 100 Assistive Devices Assistive Device Gait Belt,Front Wheeled Walker Orthotic/Prosthetic Devices or Brace: Yes Gait Deviations General Gait Pattern Flexed Trunk Factors Limiting Gait Function Factors Limiting Gait Function Decreased Activity Tolerance, Decreased Strength,Limited Range of Motion,Pain Comments Gait Comments Pt ambulated ~100 ft total w/ FWW and SBA. Pt demonstrated safe use of FWW during ambulation. Stair Climbing Assessment Evaluation Level of Assist On Stairs Standby Assistance,1 Person Assistance Devices Stair Climbing Assistive Devices Left Railing Technique/Endurance Stair Climbing Direction Ascend and Descend Stair Climbing Technique Step to Step Number of Steps Climbed 3 Stair Climbing Set # Repetitions (reps) 1 Comments Stair Climbing Comments Pt ascended/descended 3 steps w/ L rail ascending and step to pattern SBA w/ cues for sequecning. Pt states she feels safe to complete stairs at home. PT-Balance Assessment Sitting Balance and Reactions Static Sitting Balance Ability Normal Dynamic Sitting Balance Ability Normal Standing Balance and Reactions Static Standing Balance Ability Good Dynamic Standing Balance Ability Good Device Used FWW M5 PT-IP Objective Assessments Start: 01/21/20 14:35 Freq: NEEDED Status: Discharge Protocol: Document 01/22/20 09:37 [facility] (Rec: 01/22/20 10:39 [facility] [id number]) Orientation Orientation/Cognition Level of Alertness Alert Orientation Name,Age,Birthday,Month,Date, Year,Day of Week,Place, Situation Language Function Ability No Deficits Noted Safety Awareness Understands Safety Issues Memory Description No Deficits Noted Gross Range of Motion Upper Extremity ROM Assessment Within Functional Limits Impairments aching in UE's pre-op and post -op Lower Extremity ROM Assessment Within Functional Limits Strength Upper Extremity Strength Shoulder functional limitations due to cervical pain Lower Extremity Strength Assessment Within Functional Limits Coordination Assessment Gross Coordination Gross Coordination WNL Sensation Assessment Sensation Gross Sensation WNL Comments Sensation Comments no post-op numbness/tingling reported today Muscle Tone Muscle Tone WNL Yes Other Assessments Other Other Assessments flexed posture and pt is unable to achieve a neutral head position, quezada catheter in place on eval, pt moves head often in conversation M6 PT-IP Treatment Start: 01/21/20 14:35 Freq: NEEDED Status: Discharge Protocol: Document 01/23/20 09:33 [facility] (Rec: 01/23/20 12:12 [facility] [id number]) Physical Therapy Treatment Education Education Provided Precautions,Safety M7 PT-IP Assessment and Plan Start: 01/21/20 14:35 Freq: NEEDED Status: Discharge Protocol: Document 01/23/20 09:33 [facility] (Rec: 01/23/20 12:12 [facility] [id number]) PT Summary Assessment and Plan Potential Rehabilitation Potential Good Status of Condition at Evaluation Evolving Summary Impairments Pain,ROM,Strength,Balance,Bed Mobility,Transfers,Gait, Activity Tolerance Progress Towards Goals Progressing Toward Goals Assessment Summary Pt SBA for bed mobility and transfers as well as ambulation and stairs. Pt ambulated ~100 ft total w/ FWW and SBA and ascended/ descended 3 steps w/ L rail ascending step to pattern. Pt demonstrated safe use of FWW when ambulating and transferring. Pt plans to d/c home w/ daughter. Goals Bed Mobility Goal Independent Transfer Goal Independent,Front Wheeled Walker Gait Goal Independent,Front Wheel Walker Gait Distance 150 feet Other Goals up and down 3 steps with CG assist and left rail. Days to Meet Goals 2 Frequency of Treatment Frequency Of Treatment Twice a Day Treatment Plan Physical Therapy Treatment Plan Bed Mobility Training,Transfer Training,Gait Training, Therapeutic Exercise,Balance Retraining,Post Op Education, Discharge Planning,Hot or Cold Pack,Neuromuscular Re-ed Recommendations To Nursing Amount of Assist Needed 1 Person Assist Discharge Recommendations PT Discharge Recommendations Home with Assistance Equipment Needed for Home Before she owns a FWW Discharge Transportation Needs at Discharge Private Vehicle
[2020-01-23] MEDS: hydrOXYzine pamoate 25 MG CAPSULE PO (11:23)
--- NOTE | 2020-01-23 11:49 | PC.NURSE ---
Pt is dressed and ready for discharge home with Daughter. Pain meds given at 1115-Pt is aware that she cannot drive while on narcotics and she should drink plenty of fluids to prevent constipation or dehydration. Went over d/c meds, time of last dose, reviewed stroke education, s/s of infection, showering, and follow up. Pt denies further questions and was taken out via w/c by GROUP INSURANCE SPECIALIST to POV with daughter and all belongings.
--- NOTE | 2020-01-23 12:06 | CM.DANOTE ---
Discharge Planning/Care Management DCP: assessment: case received, EMR reviewed and discussed in Team Rounds. Noted pt sitting up in bedside chair, soft collar in place, waiting for therapy to arrive. Pt is a 74 year old female who admitted on 01/20 for scheduled spinal cervical surgery. Surgeon: Dr. Dione Woodruff: [facility]. PT and OT worked with pt yesterday and again this morning. A check in now shows that pt did well and was ok'd for d/c to home with her daughter's supportive care. RN Lalitha confirms she left for home about 1130 in company of daughter. Pre-Anesthesia Assessment Start: 01/14/20 12:46 Freq: Status: Discharge Protocol: Document 01/14/20 12:47 CAB (Rec: 01/14/20 13:02 CAB [id number]) Pre-Anesthesia Assessment Preferred Name Leticia Patient Information Reviewed Via Phone Assessment Assessment Completed With Patient Diagnostic Results CBC Comment Outside labs/ EKG scanned- COIVD screen @ [facility] 01/18/20 Primary Care Provider Lenard Pennington Seen Specialist in Last 12 Months Yes Specialist Seen Orthopedist Primary Language Dominican New Patient Escort Required No Height 170.18 cm Weight 86.183 kg Body Mass Index (BMI) 29.7 Hearing Ability Normal Visual Assist Glasses Dentition Type Teeth, Natural Present,Teeth, Missing Barriers to Learning None Hx Anesthesia Reactions No Hx Family Anesthesia Reaction No Hx Malignant Hyperthermia No Hx Blood Transfusions Yes: s/p vaginal delivery >50 years ago Hx Blood Transfusion Reaction No Anesthesia Review Requested No alcohol intake current alcohol intake frequency holidays/special occasions only Alcohol Intake Frequency Other: Occasional Smoking Status Former smoker Tobacco type cigarettes how long ago did patient quit smoking Quit 35+ years ago Substance Use Type does not use Pain Present Pain Reported Musculoskeletal Symptoms Abnormal Gait,Difficulty Walking,Limited Range of Motion,Neck Pain History of Falling (Recent or History of Yes ) Patient is completely paralyzed or No completely immobile Prosthesis or Orthotic Device Cane Mental Status Oriented to own ability Is patient on oxygen? No Does patient have LAINEZ/SOB Yes: Asthma, chronic cough Hx Sleep Apnea No Currently Taking a Beta Silke No Can You Climb a Flight of Stairs Without No SOB Hx Chest Pain No Hx SOB Yes: Asthma Hx Syncope or Dizziness No Anti-Coagulant Therapy No Has a Director Of Guidance In Public Schools No Cardiac Testing No Hx Pacemaker/ICD No Pacemaker Rep Required? No Cardiac Clearance Received Not Applicable Diet Type At Home Regular dysphagia Yes: Occasionally with solids Gastrointestinal Symptoms Constipation,Diarrhea,Reflux Bladder Pattern Incontinent Urinary Catheter Present No Hx Urinary Self Catheterization No Diabetes No Patient No Lactating No Hx Drug Resistant Organism No Presence of External or Internal Medical Yes: Wan eye lens, right hip, Devices left great toe Have you had any close contact with No someone diagnosed with COVID-19? Marital Status / Lives With children Prior Living Arrangements House Number of Floors (Floors) One Floor Support System Child/Children Does the Patient Have Assistance After Yes Surgery Patient Discharge Plan Description Return Home Comment Pt advised overnight length of stay per surgeon Feels Safe in Current Environment Yes Been Physically Hurt or Threatened By a No Person in Current Environment Do you have thoughts of harming yourself None or others? Are you currently considering suicide? No Do you have a plan to hurt yourself or No Plan others? Do You Have Any Spiritual Beliefs That No May Affect Your HC Choices? Do You Have Any Cultural Practices That No May Affect Your HC Choices? Comment Faith Who Can We Speak to About Patient's Care Family, friends Identifying Code for Release of Patient 1966 Information Health Care Proxy/Next of Kin Samantha (daughter) Health Care Proxy Emergency Contact Name Samantha (daughter) Emergency Contact Advance Directives? No Power of Singing Waiter Or Waitress No PAC Instructions Durable medical equipment, Medications to take/avoid, Nasal antibiotic,No ETOH/ petroleum product on skin DOS, NPO,Pre-surgical wash,Sensory aids,Sturdy shoes/comfortable clothes,Do not bring valuables and remove jewelry
== END 2020-01-23 12:01 | disposition home or self-care (01) | DRG 472 ==
PROVIDERS: Physician Assistant Surgical; Admitting Provider Orthopaedic Surgery Orthopaedic Surgery of the Spine; PCP Family Medicine; Referring Provider Family Medicine; Visit Provider Orthopaedic Surgery Orthopaedic Surgery of the Spine
PROC: 0RG20A0 Fusion of 2 or more Cervical Vertebral Joints with Interbody Fusion Device, Anterior Approach, Anterior Column, Open Approach (ICD-10-PCS; principal; 2020-01-21 08:45)
DX: M48.02 Spinal stenosis, cervical region (principal); M47.12 Other spondylosis with myelopathy, cervical region; F31.81 Bipolar II disorder; I10 Essential (primary) hypertension; E78.5 Hyperlipidemia, unspecified; K21.9 Gastro-esophageal reflux disease without esophagitis; J45.909 Unspecified asthma, uncomplicated; Z87.891 Personal history of nicotine dependence; R11.2 Nausea with vomiting, unspecified; R51.9 Headache, unspecified; Z11.59 Encounter for screening for other viral diseases; Z01.812 Encounter for preprocedural laboratory examination
CPT/HCPCS: 36415; 72040; 76000; 85027; 87635; 97116; 97162; 97165; 97530; C1776; A9270; J0330; J1100; J1170; J2250; J2405; J2704; J3010; J3410; J7613